=== PATIENT | male | born 2000 | race Caucasian/White ===

== ENCOUNTER 2024-11-09 14:13 | Emergency (ER) | payer OTHER, SELFPAY ==
--- NOTE | 2024-11-09 14:30 | ED.URI ---
HPI - URI/Sore Throat General Chief Complaint: Upper Respiratory Infection Stated Complaint: Cough Time Seen by Provider: 11/09/24 14:53 Source: patient and RN notes reviewed Mode of arrival: ambulatory Limitations: no limitations History of Present Illness HPI Narrative: 24-year-old male presents with concern for cough and chest congestion. Reports sore throat, runny nose, stuffy nose. Reports body aches and chills. MD elicited complaint: cough and sore throat Related Data Allergies Allergy/AdvReac Type Severity Reaction Status Date / Time No Known Allergies Allergy Verified 11/09/24 15:05 Review of Systems Review of Systems: CONSTITUTIONAL: Reports malaise, chills EYES: Denies visual changes, redness, or discharge. ENT: Reports rhinorrhea, congestion, and sore throat. CARDIOVASCULAR: Denies chest pain, palpitations, or edema. RESPIRATORY: Reports cough. Denies dyspnea. GASTROINTESTINAL: Denies abdominal pain, nausea, vomiting, diarrhea SKIN: Denies rash or itching. MUSCULOSKELETAL: Reports myalgia. NEUROLOGIC: Denies headache. All systems reviewed & are unremarkable except as noted in HPI and below PMFSH Comments At time of signature, agree with nursing past medical, surgical, social and family history. There is no relevant family history pertinent to the presenting complaint Exam Narrative: GENERAL: Well-appearing, well-nourished, and in no acute distress. HEAD: Normocephalic EYES: PERRLA, conjunctivae clear ENT: Nares clear. Mucous membranes moist. TM pearly espinosa with dull light reflex bilaterally; no tragal tenderness. Oropharynx not erythematous without lesions. Tonsils not enlarged and without exudate, no drooling, no hoarseness, no trismus, uvula midline. NECK: Supple. No lymphadenopathy CHEST: Left lower lobe bronchi, otherwise Clear to auscultation, breath sounds equal. No wheezing, rales, or stridor. No respiratory distress, speaks in full sentences. HEART: Regular rate and rhythm. No murmur heard. SKIN: Warm, dry, no rash. NEURO: Alert and oriented x3. PSYCH: Normal mood and affect Course Course Emergency Course: Patient is aware of diagnosis, understands and agrees to treatment plan. Anticipatory guidance given. Patient agrees to follow-up as directed and is aware of reasons to seek care at the emergency department. Portions of this record may have been created with voice recognition software Level of Care: Express Care Visit Vital Signs Vital signs: Reviewed. MDM - URI/Sore Throat MDM Narrative Medical decision making narrative: Differential diagnosis considered: Sams virus, strep pharyngitis, allergic rhinitis, upper respiratory tract infection, sinusitis, rhinosinusitis, nasopharyngitis. viral pharyngitis, otitis media, otitis externa, pneumonia, bronchitis, viral cough syndrome, viral syndrome, and influenza. Exam findings show no acute concerns or changes; patient is non-toxic appearing and is in no distress. Patient is appropriate for outpatient treatment and follow-up. Lab Data Attestation: I reviewed the patient's lab results. Critical Care Time Critical Care Time Critical Care Time: No Discharge Plan Discharge Clinical Impression: Lower respiratory tract infection Patient Disposition: Home, Self-Care Condition: Stable Instructions: Antibiotic Form, Acute Cough (ED) Additional Instructions: Take medication as prescribed Recommend antihistamine such as Benadryl at night time and Zyrtec or Sylvia during the day Also, recommend symptomatic treatment includes: rest, fluids, and increase humidity of the air at home. Recommend Acetaminophen as directed on the bottle to reduce fever, pain, headache. Avoid smoking/second-hand smoke. Please schedule a follow-up visit with your personal physician for further evaluation and treatment within 3-5days. If your symptoms persist, change or worsen significantly before you can contact your personal physician then please, without delay, go to the emergency department for further evaluation. Patient Language: Romansh Prescriptions: New azithromycin [Zithromax Z-Hadley] 250 mg tablet See Rx Instructions .ROUTE .COMPLEX Qty: 6 0RF Rx Instructions: take 500 mg today (day 1), then 250 mg for 4 days (days 2-5) methylprednisolone [Medrol (Hadley)] 4 mg tablets,dose pack See Rx Instructions .ROUTE .COMPLEX Qty: 21 0RF Rx Instructions: orally per package directions Follow-up/Referrals: PHYSICIAN,ASSOCIATE PRODUCT MANAGER [Primary Care Provider] - Time of Disposition: 15:06
[2024-11-09 14:45] VITALS: BP 128/76; PULSE 65; RESP 18; TEMP 36.8; O2SAT 99
== END 2024-11-09 15:11 | disposition home or self-care (01) ==
PROVIDERS: Emergency Provider Nurse Practitioner
DX: J22 Unspecified acute lower respiratory infection (principal)
CPT/HCPCS: 99203; G0463

== ENCOUNTER 2025-03-11 23:40 | Emergency (ER) | payer OTHER, SELFPAY ==
[2025-03-11 23:40] VITALS: BP 124/77; PULSE 60; RESP 16; TEMP 36.7; O2SAT 99
--- NOTE | 2025-03-11 23:42 | ED_ITS ---
HPI - General Adult General Chief complaint: Eye Problems Stated complaint: Metal in R Eye Time Seen by Provider: 03/11/25 23:42 History of Present Illness HPI narrative: Benito is a 24M that presented to the ED with pain in his right eye. He thinks he may have Related Data Allergies Allergy/AdvReac Type Severity Reaction Status Date / Time povidone-iodine (From Allergy Intermediate Rash Verified 03/11/25 23:49 Betadine) Review of Systems Review of Systems: All systems reviewed & are unremarkable except as noted in HPI and below Exam Const: General: cooperative, healthy appearing, comfortable, no acute distress, well developed, alert, awake and Physically active Orientation/consciousness: oriented to person, oriented to place and oriented to time HENMT: Head: normal to inspection, normocephalic and atraumatic Ears: hearing grossly normal bilaterally and external ears normal Face/Nose/Sinus: Normal external nose present Eyes: General: appearance normal, both eyes and all related structures Periorbital: periorbital findings normal Sclera: sclerae normal Pupils: Equal, round and reactive pupils present Other: Fluorscein eye exam showed a small corneal abrasion at the 6 o'clock position 20/20 vision with hand held card with kelsy th eyes, 20/30 on the right Neck: Neck: normal visual inspection Chest: Chest palpation & inspection: normal inspection of the chest Resp: Effort & Inspection: normal respiratory effort, able to speak in complete sentences and no respiratory distress Cardio: Jugular venous distension: no JVD Skin: General skin exam: normal color and no rashes or lesions noted Neuro: General: oriented to person, oriented to place and oriented to time Cranial nerves: Yes Equal, round and reactive pupils present Extrem: General: normal to inspection Discharge Plan Discharge Clinical Impression: Corneal abrasion Patient Disposition: Home Condition: Stable Instructions: Corneal Abrasion (ED) Patient Language: Italian Prescriptions: New polymyxin B sulf-trimethoprim 10,000 unit- 1 mg/mL drops 1 drp RIGHT EYE Q3H 7 Days Qty: 10 0RF Rx Instructions: while awake; do not exceed 6 doses in 24 hours Follow-up/Referrals: Jose Carlos Prado MD [Primary Care Provider] -
--- OUTSIDE RECORDS SUMMARY | 2025-03-11 23:42 | XMS_ITS | Referral Summary ---
Author Organization [facility] Address [address] [place] [id number] Care Team Providers Care Reading Specialist Name Role Phone Dre Jacome MD Primary Care Provider [phone] Allergies No known active allergies Medications sulfamethoxazole -trimethoprim (BACTRIM DS) 800-160 mg per tablet Take 1 tablet by mouth 2 (two) times a day 02/21/2022 Active neomycin-polymyx in B-dexAMETHasone (MAXITROL) 3.5 mg/g-10,000 unit/g-0.1 % ointment 02/21/2022 Active Active Problems No known active problems Immunizations Immunization Administration Dates Next Due DTaP 06/08/2006, 3,02/27/2003,2002,1 12/03/2001 HPV9 05/16/2018,06/06/2017 Hep B / HiB 08/28/2003,2002,2002 HiB 02/27/2003 IPV 06/08/2006,08/28/2003,2002 ,2002 MMR 06/08/2006,08/28/2003 Meningococcal MCV4P (Menactra) 05/27/2019,2013 Pneumococcal Conjugate PCV 13 02/27/2003, 003,2002 Tdap 07/04/2013 Varicella 06/18/2014,11/06/2003 Social History Tobacco Use Types Packs/Day Years Used Date Smoking Tobacco: Never Sex and Gender Information Value Date Recorded Sex Assigned at Not on file 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
--- OUTSIDE RECORDS SUMMARY | 2025-03-11 23:42 | XMS_ITS | Clinical Summary ---
Author Organization [facility] Address [address] [place] [id number] Care Team Providers Care Refinery Operator Assistant Name Role Phone None, Provider MD Primary Care Provider Unavaila ble Allergies No known active allergies Medications naproxen (NAPROSYN) 500 MG tablet Take 1 tablet (500 mg total) by mouth 2 (two) times daily with meals. 60 tablet 01/18/2024 Active Social History Tobacco Use Types Packs/Day Years Used Date Smoking Tobacco: Never Smokeless Tobacco: Never Tobacco Cessation:Counseling Given: Not Answered Alcohol Use Standard Drinks/Week Comments Yes 0 (1 standard drink = 0.6 oz pur e alcohol) social Sex and Gender Information Value Date Recorded Sex Assigned at Not on file Legal Sex Male 2:01 PM WATCH COMMANDER Gender Identity Not on file Sexual Orientation Not on file Last Filed Vital Signs Vital Sign Reading Time Taken Comments Blood Pressure 132/80 01/18/2024 2:21 PM WATCH COMMANDER Pulse 63 01/18/2024 2:21 PM WATCH COMMANDER Temperature 37 C (98.6 F) 01/18/2024 2:20 PM WATCH COMMANDER Respiratory Rate 16 01/18/2024 2:21 PM WATCH COMMANDER Oxygen Saturation 100% 01/18/2024 2:21 PM WATCH COMMANDER Inhaled Oxygen Concentration - - Weight 71.2 kg (157 lb) 01/18/2024 2:20 PM WATCH COMMANDER Height 175.3 cm (5' 9 ) 01/18/2024 2:20 PM WATCH COMMANDER Body Mass Index 23.18 01/18/2024 2:20 PM WATCH COMMANDER Plan of Treatment Health Maintenance Due Date Last Done Comments Annual Physical 2005 Meningococcal B Vaccine (1 of 2 - Standard) 2018 Hepatitis C 2020 DTaP, Tdap and Td Vaccines (6 - Td or Tdap) 07/04/2023 07/04/2013, 06/08/2006, 11/06/2003, Additional history exists COVID-19 Vaccine ( season) 2024 Pneumococcal Vaccine: Pediatrics (0 to 5 Years) and At-Risk Patients (6 to 49 Years) Aged Out 02/27/2003, 2002, 2002 No longer eligible based on patient's age to complete this topic Hepatitis B Vaccines Completed 08/28/2003, 2002, 2002 HPV Vaccines Completed 05/16/2018, 06/06/2017 Meningococcal Vaccine Completed 05/27/2019, 014 RSV Immunizations Under 20 Months Aged Out No longer eligible based on patient's age to complete this topic Insurance [facility] Care Teams Refinery Operator Assistant Relationship Specialty Start Date End Date None, Provider, MD PCP - General UNKNOWN PHYSICIAN SPECIALTY 01/18/24
--- OUTSIDE RECORDS SUMMARY | 2025-03-11 23:42 | XMS_ITS | Clinical Summary ---
Author Organization [facility] Address [address] [place] [id number] Care Team Providers Care Glost Placer Name Role Phone Dre Jacome MD Primary Care Provider [phone] Allergies No known active allergies Medications sulfamethoxazole [...] 13 02/27/2003, 003,2002 Tdap 07/04/2013 Varicella 06/18/2014,11/06/2003 Medical History Medical History Date Comments CTS (carpal tunnel syndrome) Social History Tobacco Use Types Packs/Day Years Used Date Smoking Tobacco: Never Sex and Gender Information Value Date Recorded Sex Assigned at Not on file 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
[2025-03-11] MEDS: FLUORESCEIN SOD 1 MG/STRIP EACH EYE (23:47)
[2025-03-11] MEDS: TETRACAINE HCL 0.5% OPHTH SOLN 4 ML BTL 1 DROP AFFCTD EYE (23:47)
--- OUTSIDE RECORDS SUMMARY | 2025-03-12 00:03 | XMS_ITS | Clinical Summary ---
Author Organization [facility] Address [address] [place] [phone] Care Team Providers Care Leno Sewer Name Role Phone Dre Jacome MD Primary Care Provider [phone] Allergies No known active allergies Medications sulfamethoxazole [...] on file Legal Sex Male 9:38 AM MUSEUM ASSISTANT Gender Identity Not on file Sexual Orientation Not on file Obstetrics History Plan of Treatment Not on file Insurance [employer] OPEN ACCESS [employer] Care Teams Leno Sewer Relationship Specialty Start Date End Date Dre Jacome MD PCP - General 08/18/21
--- OUTSIDE RECORDS SUMMARY | 2025-03-12 00:03 | XMS_ITS | Clinical Summary ---
Author Organization [facility] Address [address] [place] [id number] Care Team Providers Care Mud Mill Tender Name Role Phone None, Provider MD Primary [...] on file Legal Sex Male 2:01 PM UTILITY APPRAISER Gender Identity Not on file Sexual Orientation Not on file Last Filed Vital Signs Vital Sign Reading Time Taken Comments Blood Pressure 132/80 01/18/2024 2:21 PM UTILITY APPRAISER Pulse 63 01/18/2024 2:21 PM UTILITY APPRAISER Temperature 37 C (98.6 F) 01/18/2024 2:20 PM UTILITY APPRAISER Respiratory Rate 16 01/18/2024 2:21 PM UTILITY APPRAISER Oxygen Saturation 100% 01/18/2024 2:21 PM UTILITY APPRAISER Inhaled Oxygen Concentration - - Weight 71.2 kg (157 lb) 01/18/2024 2:20 PM UTILITY APPRAISER Height 175.3 cm (5' 9 ) 01/18/2024 2:20 PM UTILITY APPRAISER Body Mass Index 23.18 01/18/2024 2:20 PM UTILITY APPRAISER Plan of Treatment Health Maintenance Due Date [...] patient's age to complete this topic Insurance COUNTS INCLUDE [facility] BEDS AT [facility] Care Teams Mud Mill Tender Relationship Specialty Start Date End Date None, Provider, MD PCP - General UNKNOWN PHYSICIAN SPECIALTY 01/18/24
--- OUTSIDE RECORDS SUMMARY | 2025-03-12 00:03 | XMS_ITS | Referral Summary ---
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
== END 2025-03-12 00:15 | disposition home or self-care (01) ==
LOC: CHSED 03-12 00:02
PROVIDERS: Emergency Provider Family Medicine; PCP Internal Medicine
DX: S05.01XA Injury of conjunctiva and corneal abrasion without foreign body, right eye, initial encounter (principal); X58.XXXA Exposure to other specified factors, initial encounter
CPT/HCPCS: 99283

== ENCOUNTER 2025-07-22 16:00 | Emergency (ER) | payer OTHER, SELFPAY ==
--- OUTSIDE RECORDS SUMMARY | 2025-07-22 16:03 | XMS_ITS | Clinical Summary ---
Author Organization [facility] Address [facility] [place] [address] Care Team Providers Care Shredder Tender Peat Name Role Phone None, Provider MD Primary [...] on file Legal Sex Male 2:01 PM CUTTING TORCH OPERATOR Gender Identity Not on file Sexual Orientation Not on file Last Filed Vital Signs Vital Sign Reading Time Taken Comments Blood Pressure 132/80 01/18/2024 2:21 PM CUTTING TORCH OPERATOR Pulse 63 01/18/2024 2:21 PM CUTTING TORCH OPERATOR Temperature 37 C (98.6 F) 01/18/2024 2:20 PM CUTTING TORCH OPERATOR Respiratory Rate 16 01/18/2024 2:21 PM CUTTING TORCH OPERATOR Oxygen Saturation 100% 01/18/2024 2:21 PM CUTTING TORCH OPERATOR Inhaled Oxygen Concentration - - Weight 71.2 kg (157 lb) 01/18/2024 2:20 PM CUTTING TORCH OPERATOR Height 175.3 cm (5' 9) 01/18/2024 2:20 PM CUTTING TORCH OPERATOR Body Mass Index 23.18 01/18/2024 2:20 PM CUTTING TORCH OPERATOR Plan of Treatment Health Maintenance Due Date [...] patient's age to complete this topic Insurance [facility] Care Teams Shredder Tender Peat Relationship Specialty Start Date End Date None, Provider, MD PCP - General UNKNOWN PHYSICIAN SPECIALTY 01/18/24
--- OUTSIDE RECORDS SUMMARY | 2025-07-22 16:03 | XMS_ITS | Clinical Summary ---
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
[2025-07-22 16:06] VITALS: BP 124/68; PULSE 69; RESP 16; TEMP 36.6; O2SAT 100
--- NOTE | 2025-07-22 16:43 | ED.SKABFB ---
HPI - Skin/Abscess/Foreign Bdy General Chief complaint: Skin/Abscess/Foreign Body Stated complaint: left arm allergic reaction Time Seen by Provider: 07/22/25 16:10 Source: patient Mode of arrival: ambulatory Limitations: no limitations History of Present Illness HPI narrative: Benito is a 25-year-old male patient presenting to the clinic today with complaints of a possible allergic reaction to the left antecubital after giving blood. He reports the use Betadine to his left antecubital when he was giving blood and he developed a rash afterwards. He denies any fevers, chills, body aches. Area is very itchy. Related Data Allergies Allergy/AdvReac Type Severity Reaction Status Date / Time povidone-iodine (From Allergy Intermediate Rash Verified 07/22/25 16:09 Betadine) Review of Systems Review of Systems: Pertinent positives per HPI. Patient denies any fever, chills, headache, visual changes, dizziness, cough, runny nose, sore throat, shortness of breath, chest pain, palpitations, nausea, vomiting, diarrhea, constipation, abdominal pain, or any urinary issues. PMFSH Comments At the time of my signature, I reviewed and agree with the nursing past medical, surgical, social, and family history. There is no relevant family history pertinent to the patient complaint. Exam Narrative: General: Well-developed, well nourished, in no apparent distress Head: Normocephalic, atraumatic. Cardio: Regular rate and rhythm, s1 and s2 normal, no murmur appreciated. Resp: Clear to auscultation bilaterally, no rhonchi, rales, wheezing or rubs. Integumentary: [place], warm, and dry, red, raised, itchy, swollen, eczema like rash to the left antecubital area Course Course Emergency Course: Portions of this record may have been created with voice recognition software. Level of Care: Express Care Visit Vital Signs Vital signs: Vital Signs Temperature 36.6 C 07/22/25 16:06 Pulse Rate 69 07/22/25 16:06 Respiratory Rate 16 07/22/25 16:06 Blood Pressure 124/68 07/22/25 16:06 Pulse Oximetry 100 07/22/25 16:06 Oxygen Delivery Room Air 07/22/25 16:06 Temperature 36.6 C 07/22/25 16:06 Pulse Rate 69 07/22/25 16:06 Respiratory Rate 16 07/22/25 16:06 Blood Pressure 124/68 07/22/25 16:06 Pulse Oximetry 100 07/22/25 16:06 Oxygen Delivery Room Air 07/22/25 16:06 Vital signs reviewed MDM - Skin/Abscess/Foreign Bdy MDM Narrative Medical decision making narrative: At the time of visit patient is resting comfortably on the exam table. Patient appears to be nontoxic. Complaints of a possible allergic reaction to the left antecubital after giving blood. He reports the use Betadine to his left antecubital when he was giving blood and he developed a rash afterwards. He denies any fevers, chills, body aches. Area is very itchy. On exam red, raised, itchy, swollen, eczema like rash to the left antecubital area Plan: I suspect patient has dermatitis to the left antecubital likely due to Betadine. Prescription for clobetasol cream was sent to the pharmacy. Supportive measures were discussed with the patient and they voiced understanding discharge instructions and agrees to treatment plan. Return precautions reviewed Differential Diagnosis Differential diagnosis: Likely abscess of skin or subcutaneous tissue, viral exanthem, dermatophytosis, urticaria, herpes zoster, allergic reaction to drug, cellulitis, eczema, insect bites, impetigo and contact dermatitis Discharge Plan Discharge Clinical Impression: Dermatitis Patient Disposition: Home Condition: Stable Instructions: Antibiotic Form, Dermatitis (ED) Additional Instructions: Apply clobetasol cream as directed Avoid hot showers May moisturize twice daily using Aquaphor, Cetaphil, or Lubriderm lotion Avoid scratching as this can cause a secondary infection May take benadryl 25-50mg every 6 hours as needed for itching. Follow up with your PCP in 3-5 days if symptoms persist or sooner if they worsen Go to the Emergency Room if symptoms worsen- fever, rash spreading with treatment, shortness of breath, tongue swelling, drooling, or chest pain Patient Language: Tuvaluan Prescriptions: New clobetasol 0.05 % cream 1 applic topical BID 7 Days Qty: 60 0RF Follow-up/Referrals: PHYSICIAN,ARBORICULTURE INSTRUCTOR [Primary Care Provider, Internal Medicine] Time of Disposition: 16:45 Quality NIHSS Nursing Documentation ED NIHSS nursing documentation: reviewed/agree
== END 2025-07-22 16:49 | disposition home or self-care (01) ==
PROVIDERS: Emergency Provider Nurse Practitioner Family
DX: L30.9 Dermatitis, unspecified (principal)
CPT/HCPCS: 99213; G0463